=== PATIENT | male | born 1960 | race Caucasian/White ===

== ENCOUNTER → 2023-07-11 | Outpatient (CLI) | payer OTHER ==
--- NOTE | 2023-07-11 12:21 | US ---
EXAMINATION TYPE: US gallbladder DATE OF EXAM: 07/11/2023 COMPARISON: NONE CLINICAL INDICATION: Male, 62 years old with history of R10.13 EPIGASTRIC PAIN; Pt states episode of ABD pain post prandial TECHNIQUE: Multiple sonographic images of the right upper quadrant are obtained. FINDINGS: EXAM MEASUREMENTS: Liver Length: 21.6 cm Gallbladder Wall: 0.2 cm CBD: 0.6 cm Right Kidney: 12.6 x 5.1 x 5.9 cm Pancreas: Obscured by bowel gas Liver: Enlarged, heterogeneous, difficult to penetrate Gallbladder: Multiple gallstones within lumen, wall not thickened Evidence for sonographic Drummond's sign: No CBD: wnl Right Kidney: No evidence of hydro, lower pole gassed out IMPRESSION: 1. No evidence for acute process. 2. Cholelithiasis. 3. Hepatic steatosis.
--- NOTE | 2023-07-11 23:43 | FL ---
EXAMINATION TYPE: FL UGI air wo esophagus wo KUB DATE OF EXAM: 07/11/2023 COMPARISON: None HISTORY: Epigastric pain, reflux TECHNIQUE: Double air contrast technique. FINDINGS: Images: 151. Fluoroscopy time: 0.5 minutes Esophagus dilates to normal caliber and has normal contour to the gastroesophageal junction. A Viktor ki's ring is identified above the gastroesophageal junction compatible with a small hiatal hernia. Fe atures. Contractions were evident during the examination. No suspicious intraluminal or extramural de fects are evident. Reflux into the esophagus to the level of the clavicles was evident during the exa mination. There is incomplete stripping of the esophageal bolus in the horizontal drinking position Fundus body and antrum of the stomach is visualized unremarkable. Duodenal cap is in a normal positio n. An ulceration along the inferior first portion of the duodenum is not excluded, example image 109. Ligament of Treitz is in the normal position. IMPRESSION: 1. Small ulceration along the inferior border of the first portion of the duodenum is not excluded. 2. Frequent reflux present during the examination to the level of clavicles. 3. Small self reducing sliding type hiatal hernia. 4. Presbyesophagus
== END | disposition home or self-care (01) ==
LOC: RADUSWWP 07:15
PROVIDERS: ATTEND Family Medicine
DX: K80.20 Calculus of gallbladder without cholecystitis without obstruction (principal); K76.0 Fatty (change of) liver, not elsewhere classified; K21.9 Gastro-esophageal reflux disease without esophagitis; K44.9 Diaphragmatic hernia without obstruction or gangrene; K22.89 Other specified disease of esophagus; R10.13 Epigastric pain
CPT/HCPCS: 74246; 76705